=== PATIENT | male | born 1985 | race Caucasian/White ===

== ENCOUNTER → 2020-03-06 12:37 | Outpatient (CLI) | payer OTHER, SELFPAY ==
--- NOTE | 2020-03-06 | DI.MRI.S_ITS ---
PROCEDURE: MR HEAD/BRAIN WO/W CON INDICATIONS: Malignant neoplasm of brain TECHNIQUE: Noncontrast axial T1 spin echo, axial T2 fast spin echo, sagittal and axial FLAIR, coronal T2 fast spin echo, axial gradient echo, axial diffusion and ADC through the brain. After the administration of contrast, axial and coronal 3D VIBE or T1 spin echo with fat saturation through the brain. COMPARISON: No prior studies are available for review at the time of this dictation. FINDINGS: Image quality: Excellent. CSF Spaces: Basal cisterns are patent. No extra-axial fluid collections. Ex-vacuo dilatation can be seen involving the anterior horn of the right lateral ventricle. The ventricles otherwise demonstrate an unremarkable appearance. Brain: Right anterolateral frontal lobe and anterior right temporal lobe resection changes are seen, with associated encephalomalacia/gliotic change. No surrounding enhancement can be seen to suggest tumor recurrence. A mild amount of hemosiderin deposition can be seen along the margins of the resection cavity. No masses or abnormal enhancement can be seen elsewhere. No midline shift. The brainstem appears normal. Diffusion-weighted images demonstrate no acute ischemic insults. No chronic ischemic insults. Normal intravascular flow voids are present. Skull and face: Right sided craniotomy changes are seen. Calvarial marrow is normal in signal. Orbits appear normal. Sinuses: Focal moderate mucosal thickening is seen involving the left maxillary sinus. A mucus retention cyst is also seen within the left maxillary sinus. The paranasal sinuses are otherwise unremarkable. No significant abnormal mass air cell fluid can be seen. IMPRESSION: Right anterior frontotemporal resection changes, without masses or abnormal enhancement seen to suggest recurrence. No masses or abnormal enhancement can be seen elsewhere. Dictated by: Kevin Pierce M.D. on 03/06/2020 at 13:08 Approved by: Kevin Pierce M.D. on 03/06/2020 at 13:12
== END ==
PROVIDERS: Referring Provider Psychiatry & Neurology Neurology; Visit Provider Psychiatry & Neurology Neurology
DX: C71.9 Malignant neoplasm of brain, unspecified (principal)
CPT/HCPCS: 70553